=== PATIENT | male | born 1965 | race Caucasian/White ===

== ENCOUNTER 2022-05-29 08:00 | Outpatient (CLI) | payer OTHER | END 2022-05-29 08:05 | disposition home or self-care (01) | LOC: PPH VACUNA 08:00 | PROVIDERS: ATTEND Emergency Medicine Pediatric Emergency Medicine | DX: Z23 Encounter for immunization (principal) ==

== ENCOUNTER 2022-05-29 14:06 | Outpatient (CLI) | payer OTHER | END 2022-05-29 14:40 | disposition home or self-care (01) | LOC: LAB 14:06 | DX: Z11.59 Encounter for screening for other viral diseases (principal) ==